=== PATIENT | male | born 1980 | race Caucasian/White ===

== ENCOUNTER 2023-09-08 03:20 | Emergency (ER) | payer BC ==
[2023-09-08] MEDS ORDERED: Acetaminophen 325 MG Tab PO ONE (03:56)
[2023-09-08] MEDS ORDERED: Sodium Chloride 0.9% 1,000 ML IV ONE (03:56)
[2023-09-08] MEDS ORDERED: Acetaminophen 500 MG Tab PO ONE (04:00)
[2023-09-08] MEDS ORDERED: Sodium Chloride 0.9% 50 ML IV ONE (04:06)
[2023-09-08] MEDS ORDERED: Iopamidol 612 MG/ML 100 ML Bottle IV SCH (04:15)
[2023-09-08 04:24] LABS: BASOPHILS ABSOLUTE AUTO 0.04 K/uL (0.02-0.10); BASOPHILS PERCENT AUTO 0.3 % (0.0-0.5); EOSINOPHILS PERCENT AUTO 2.2 % (1.0-5.0); HEMATOCRIT 46.1 % (40.0-54.0); HEMOGLOBIN 15.3 g/dL (13.0-18.0); LYMPHOCYTES ABSOLUTE AUTO 1.66 K/uL (1.50-4.00); LYMPHOCYTES PERCENT AUTO 11.9 % (20.0-40.0); MEAN CORPUSCULAR HEMOGLOBIN 31.4 pg (27.0-32.0); MEAN CORPUSCULAR HGB CONC 33.2 g/dL (31.0-35.0); MEAN CORPUSCULAR VOLUME 95 fL (76-96); MEAN PLATELET VOLUME 9.2 fL (6.0-10.0); MONOCYTES PERCENT AUTO 10.8 % (3.0-10.0); NEUTROPHILS ABSOLUTE AUTO 10.44 K/uL (2.00-7.50); NEUTROPHILS PERCENT AUTO 74.8 % (45.0-70.0); PLATELET COUNT,PLT 205 K/uL (150-400); RED BLOOD CELL COUNT 4.87 M/uL (4.50-6.50); WHITE BLOOD CELL COUNT,WBC 13.9 K/uL (4.0-11.0)
[2023-09-08] MEDS ORDERED: Acetaminophen 500 MG Tab ONE (04:29)
[2023-09-08 04:35] LABS: APPEARANCE,URINE CLEAR (CLEAR); BILIRUBIN,URINE NEGATIVE (NEGATIVE); COLOR,URINE YELLOW; GLUCOSE,URINE NEGATIVE (NEGATIVE); KETONES,URINE 15 mg/dL (NEGATIVE); LEUKOCYTE ESTERASE,URINE NEGATIVE (NEGATIVE); NITRITE,URINE NEGATIVE (NEGATIVE); OCCULT BLOOD,URINE TRACE-INTACT (NEGATIVE); PROTEIN,URINE TRACE mg/dL (NEGATIVE); UROBILINOGEN,URINE 0.2 E.U./dL (0.2-1.0)
[2023-09-08 04:36] LABS: A/G RATIO 0.9 (0.8-2.0); ALBUMIN 3.5 g/dL (3.4-5.0); ANION GAP 13.4 mmol/L (5.0-15.0); BILIRUBIN TOTAL 1.2 mg/dL (0.0-1.0); CALCIUM 9.3 mg/dL (8.5-10.1); CARBON DIOXIDE,CO2 25.2 mmol/L (21.0-32.0); EST CRCL DRUG DOSING (CG) 103.47 mL/min; POTASSIUM,K 3.6 mmol/L (3.5-5.1); PROTEIN TOTAL,TP 7.5 g/dL (6.4-8.2)
[2023-09-08 04:38] LABS: RBC,URINE 0-5 /HPF; WBC,URINE NOT SEEN /HPF
[2023-09-08 04:55] LABS: CORONAVIRUS COVID-19 NAA NEGATIVE (NEGATIVE); INFLUENZA A NAA NEGATIVE (NEGATIVE); INFLUENZA B NAA NEGATIVE (NEGATIVE)
[2023-09-08] MEDS ORDERED: metroNIDAZOLE/Normal Saline 500 MG in Premix Bag 1 BAG IV ONE (05:20)
[2023-09-08] MEDS ORDERED: cefTRIAXone 1 GM in Sodium Chloride 0.9% 50 ML IV ONE (05:21)
[2023-09-08] MEDS ORDERED: Amoxicillin/Clavulanate K 875-125 MG Tab ONE (07:00)
== END 2023-09-08 07:11 | disposition home or self-care (01) ==
LOC: LB.ED 03:20
DX: K57.92 Diverticulitis of intestine, part unspecified, without perforation or abscess without bleeding (principal); Z20.822 Contact with and (suspected) exposure to COVID-19
CPT/HCPCS: 0240U; 36415; 74177; 80053; 81001; 83605; 83690; 85025; 96361; 96365; 96367; 99284; A9270; J0696; J1836; J3490; J7030; Q9967